=== PATIENT | male | born 1960 | race Caucasian/White ===

== ENCOUNTER 2017-03-08 11:14 | Outpatient (CLI) | payer OTHER | END 2017-03-08 11:15 | disposition home or self-care (01) | LOC: DTY/OP 11:14 | PROVIDERS: ATTEND Surgery | DX: Z01.818 Encounter for other preprocedural examination (principal); E78.5 Hyperlipidemia, unspecified; E11.9 Type 2 diabetes mellitus without complications; I10 Essential (primary) hypertension | CPT/HCPCS: 97802 ==

== ENCOUNTER 2017-06-08 08:51 | Outpatient (CLI) | payer BC ==
--- NOTE | 2017-06-08 09:42 | RAD ---
CHEST TWO VIEWS: History: Pre op. FINDINGS: No comparison. The cardiac silhouette and pulmonary vasculature are unremarkable. Mediastinum is midl ine. There is no confluent airspace consolidation, pneumothorax or pleural fluid apparent. IMPRESSION: No active cardiopulmonary abnormalities are demonstrated. POS: [facility]
[2017-06-08 09:46] LABS: Hemoglobin 15.4 g/dL (14.0-18.0); Mean Corpuscular HGB CONC 33.2 g/dL (32.0-36.0); Mean Corpuscular Hemoglobin 31.7 pg (27.0-31.0); Mean Corpuscular Volume 95.6 fL (80.0-94.0); RBC Distribution Width 12.3 % (11.5-14.5); Red Blood Cell (RBC) Count 4.87 mill/uL (4.70-6.10); White Blood Cell (WBC) Count 6.9 thou/uL (4.8-10.8)
[2017-06-08 09:47] LABS: #Eosinphils 0.1 thou/uL (0.0-0.7); #Lymphocytes 2.2 thou/uL (1.20-3.40); #Monocytes 0.5 thou/uL (0.11-0.59); %Basophils 0.5 % (0.0-1.0); %Eosinophils 1.5 % (0.0-10.0); %Lymphocytes 32.2 % (21.0-51.0); %Monocytes 7.5 % (0.0-10.0); %Neutrophils 58.4 % (42.0-75.0); Mean Platelet Volume 10.4 fL (7.4-10.4); Platelet Count 127 thou/uL (130-400)
[2017-06-08 10:48] LABS: ALT (SGPT) 58 U/L (8-55); AST (SGOT) 51 U/L (5-34); Albumin 3.9 g/dL (3.5-5.0); Alkaline Phosphatase 70 U/L (40-150); Anion Gap 14 mmol/L (10-20); BUN (Urea Nitrogen) 23 mg/dL (8.4-25.7); Bilirubin, Direct 0.5 mg/dL (0.1-0.3); Bilirubin, Total 1.3 mg/dL (0.2-1.2); Calc. Creatinine Clearance 0 mL/min (70-130); Calcium 9.4 mg/dL (7.8-10.44); Carbon Dioxide 20 mmol/L (22-29); Chloride 109 mmol/L (98-107); Estimated GFR-MDRD Greater than 90; Globulin 3.2 g/dL (2.4-3.5); Glucose 100 mg/dL (70-105); Potassium 4.2 mmol/L (3.5-5.1); Protein, Total 7.1 g/dL (6.0-8.3); Sodium 139 mmol/L (136-145)
[2017-06-08 10:49] LABS: Hemoglobin A1c 5.8 % (4.0-6.0)
== END 2017-06-08 08:52 | disposition home or self-care (01) ==
LOC: LABBT 08:51
PROVIDERS: ATTEND Surgery
DX: Z01.818 Encounter for other preprocedural examination (principal); E66.01 Morbid (severe) obesity due to excess calories
CPT/HCPCS: 71046; 80053; 80076; 83036; 85025

== ENCOUNTER 2017-06-13 05:46 | Inpatient (IN) | payer BC ==
[2017-06-08 09:06] VITALS: BMI 43.4
[2017-06-13] MEDS ORDERED: Heparin 5,000 UNITS/ML VIAL ONE (06:08)
[2017-06-13] MEDS ORDERED: Levofloxacin 500 mg/D5W 100 ml Premix Bag ONE (06:08)
[2017-06-13] MEDS ORDERED: Fentanyl 100 MCG/2 ML VIAL ONE ×3 (06:37→09:51)
[2017-06-13] MEDS ORDERED: Midazolam HCl 2 mg/2 ml Vial ONE ×2 (06:37→07:25)
[2017-06-13] MEDS ORDERED: Lidocaine 2% w/Epinephrine 1:200K 20 ML VIAL ONE (06:59)
[2017-06-13] MEDS ORDERED: Bupivacaine 0.25% HCL 30 ML VIAL ONE (06:59)
--- NOTE | 2017-06-13 07:37 | HP ---
CHIEF COMPLAINT: Morbid obesity. HISTORY: The patient is a 56-year-old male, who has been overweight for many years and attempted [facility] [place] programs without success. He is here for sleeve gastrectomy. PAST MEDICAL HISTORY: Significant for gout and hypertension. PAST SURGICAL HISTORY: Tonsillectomy and cardiac stents. MEDICATIONS: Cialis, metformin, Uloric, atenolol, tramadol, cyclobenzaprine, colchicine. ALLERGIES: No known drug allergies. FAMILY HISTORY: Father of heart disease, hypertension, and high cholesterol with aspiration pne umonia. Mother of lung cancer. SOCIAL HISTORY: He works for [employer]. No tobacco, no alcohol. PHYSICAL EXAMINATION: GENERAL: Height 5 feet 11, weight 318, body mass index 44.35. VITAL SIGNS: Blood pressure 145/90 and pulse 63. GENERAL: A well-developed, well-nourished male in no apparent distress. HEENT: No jaundice. LUNGS: Clear. HEART: Regular rate and rhythm. ABDOMEN: Soft, nondistended, nontender, no masses, or hernias. EXTREMITIES: Good pulses. No pedal edema. BACK: Nontender. ASSESSMENT: Morbid obesity with comorbidities. PLAN: Laparoscopic sleeve gastrectomy. CONSENT: I have discussed the planned procedure as well as risk of bleeding, infection, injury to es ophagus, spleen, loops of bowel, need to open. He understands and gives informed consent.
[2017-06-13] MEDS ORDERED: diphenhydrAMINE 50 MG/ML VIAL IVP PRN ×2 (08:55→09:57)
[2017-06-13] MEDS ORDERED: Hydrocodone-Acetamin 15 ML UDCUP PO PRN (08:55)
[2017-06-13] MEDS ORDERED: hydrALAZINE 20 MG/ML VIAL SLOW IVP PRN (08:55)
[2017-06-13] MEDS ORDERED: Promethazine HCl 25 MG/ML VIAL IM PRN ×3 (08:55→09:57)
[2017-06-13] MEDS ORDERED: Dextrose 50% Abboject 50 ML SYRINGE SLOW IVP PRN (08:55)
[2017-06-13] MEDS ORDERED: Ondansetron HCl/PF 4 MG/2 ML Vial IVP PRN ×3 (08:55→09:57)
[2017-06-13] MEDS ORDERED: Dextrose 5% in Water 1,000 ML IV PRN (08:55)
[2017-06-13] MEDS ORDERED: Insulin Regular 300 UNITS/3 ML VIAL SC PRN (08:55)
--- NOTE | 2017-06-13 09:29 | OP ---
DATE OF PROCEDURE: 06/13/2017 PREOPERATIVE DIAGNOSIS: Morbid obesity. SURGEON: Ahsan López M.D. PROCEDURE: Laparoscopic sleeve gastrectomy, esophagogastroscopy. INDICATIONS: This is a 56-year-old male who has been overweight for many years and attempted multipl e weight loss programs without success. FINDINGS: A 38 Jamaican bougie used. PROCEDURE IN DETAIL: After informed consent was obtained, the patient was taken to the operating milady m and given general endotracheal anesthesia. He was placed in the supine position. The abdomen was prepped and draped in the usual fashion. Local anesthesia infiltrated subcutaneously and deep and a 12 mm incision was performed approximately 8 inches below the xiphoid slightly to the left. Veress n eedle inserted. Drop test performed. Pneumoperitoneum was created to a volume of 2 liters of carbon dioxide. Utilizing a bladeless 12 mm trocar and 0 degree laparoscope direct visual entry in the abd ominal cavity was performed. Pneumoperitoneum was then created to a pressure of 15 mmHg and the loretta ent placed in steep reverse Trendelenburg position. Nathansen liver retractor inserted. Left lobe o f liver retracted superiorly. The pylorus identified, a 12 mm port placed on the right beneath it an d two 12s placed left subcostal. The omentum was taken off the greater curvature 5 cm from the pylor us utilizing the LigaSure. Short gastrics divided with the LigaSure and the left crura defined with the LigaSure. A 38-Jamaican bougie inserted directed into the antrum. The linear 60 mm green load sta pler used to divide the antrum to the bougie, gold load along the bougie, and a series of blues throu gh the angle of His. Intraoperative endoscopy was performed. The video endoscope inserted under dir ect vision and advanced into the sleeve. The staple line inspected. There was no bleeding. Staple line then tested by inflating the new stomach with pressurized air under water. There was no air anika k. Stomach decompressed. Scope removed. The remnant stomach removed from the abdomen through the l eft lateral port site. The fascia closed with 0 Vicryl suture and the GraNee needle. Trocars and re tractors were removed. The skin closed with interrupted 4-0 Rapide. Dermabond applied. The patient tolerated the procedure well and transferred to recovery in good condition. Sponge and needle count verified correct x2.
[2017-06-13] MEDS ORDERED: Promethazine HCl 25 MG/ML VIAL ONE (09:48)
[2017-06-13] MEDS ORDERED: Fentanyl 5000 MCG/250 ML CADD IVPB PRN (09:57)
[2017-06-13] MEDS ORDERED: diphenhydrAMINE 50 MG/ML VIAL IM PRN (09:57)
[2017-06-13] MEDS ORDERED: Ketorolac Tromethamine 30 MG/ML VIAL IVP PRN ×2 (09:57)
[2017-06-13] MEDS ORDERED: diphenhydrAMINE 25 MG CAP PO PRN (09:57)
[2017-06-13] MEDS ORDERED: Zolpidem Tartrate 5 MG TAB PO PRN (09:57)
[2017-06-13] MEDS ORDERED: Promethazine HCl 25 MG/ML VIAL SLOW IVP PRN (09:57)
[2017-06-13] MEDS ORDERED: Naloxone HCl 0.4 mg/ml Vial IV PRN (09:57)
[2017-06-13] MEDS ORDERED: Communication Order-Pharmacy FS SCH (10:00)
[2017-06-13] MEDS ORDERED: fentaNYL Citrate/PF 2,000 MCG in Sodium Chloride 0.9% 60 ML IV PRN (10:15)
[2017-06-13] MEDS: Pantoprazole 40 MG VIAL IVP SCH (13:27)
[2017-06-13] MEDS: Ketorolac Tromethamine 30 MG/ML VIAL IVP SCH ×3 (13:27→23:33)
[2017-06-13] MEDS ORDERED: Ondansetron HCl/PF 4 MG/2 ML Vial ONE (14:35)
[2017-06-13] MEDS ORDERED: Propofol 200 MG/20 ML VIAL ONE (14:35)
[2017-06-13] MEDS ORDERED: Dexamethasone 20 MG/5 ML VIAL ONE (14:35)
[2017-06-13] MEDS ORDERED: Ketorolac Tromethamine 30 MG/ML VIAL ONE (14:35)
[2017-06-13] MEDS ORDERED: Lidocaine 1% PF 5 ML VIAL ONE (14:35)
[2017-06-13] MEDS ORDERED: Glycopyrrolate 0.2 MG/ML 5 ML SYRINGE ONE (14:35)
[2017-06-13] MEDS ORDERED: PHENYLEPHRINE-NS 100 MCG/ML 10 ML SYRINGE ONE (14:35)
[2017-06-13] MEDS: 1/2 NS w/KCL 20 mEq 1,000 ML IV SCH ×2 (17:00→18:45)
[2017-06-14] MEDS: 1/2 NS w/KCL 20 mEq 1,000 ML IV SCH (00:33)
[2017-06-14 05:40] LABS: #Basophils 0.1 thou/uL (0.0-0.2); #Lymphocytes 2.2 thou/uL (1.20-3.40); #Neutrophils 7.6 thou/uL (1.40-6.50); %Basophils 0.5 % (0.0-1.0); %Eosinophils 0.2 % (0.0-10.0); %Lymphocytes 19.8 % (21.0-51.0); %Monocytes 9.5 % (0.0-10.0); Hemoglobin 14.3 g/dL (14.0-18.0); Mean Corpuscular HGB CONC 32.8 g/dL (32.0-36.0); Mean Corpuscular Hemoglobin 31.8 pg (27.0-31.0); Mean Corpuscular Volume 97.1 fl (80.0-94.0); Mean Platelet Volume 10.7 fL (7.4-10.4); Platelet Count 128 thou/uL (130-400); RBC Distribution Width 12.2 % (11.5-14.5); Red Blood Cell (RBC) Count 4.49 mill/uL (4.70-6.10); White Blood Cell (WBC) Count 10.9 thou/uL (4.8-10.8)
[2017-06-14] MEDS: Ketorolac Tromethamine 30 MG/ML VIAL IVP SCH ×2 (05:40→11:49)
[2017-06-14 06:21] LABS: Anion Gap 9 mmol/L (10-20); BUN (Urea Nitrogen) 15 mg/dL (8.4-25.7); Calc. Creatinine Clearance 194 mL/min (70-130); Calcium 8.7 mg/dL (7.8-10.44); Carbon Dioxide 24 mmol/L (22-29); Chloride 108 mmol/L (98-107); Estimated GFR-MDRD Greater than 90; Glucose 86 mg/dL (70-105); Potassium 4.2 mmol/L (3.5-5.1); Sodium 137 mmol/L (136-145)
[2017-06-14] MEDS: Pantoprazole 40 MG VIAL IVP SCH (08:26)
--- NOTE | 2017-06-14 08:27 | RAD ---
GASTROGRAFIN SWALLOW: Date: 06/14/17 HISTORY: 56-year-old male status post gastric sleeve procedure. FINDINGS: A 15 mL Gastrografin swallow was performed. Esophageal motility normal. Contrast passed into the rodney moi sleeve without evidence of leak. A small amount of contrast passed through the gastric sleeve and into the duodenum. Gastroesophageal reflux was seen during the examination from the gastric sleeve i nto the mid thoracic esophagus. IMPRESSION: 1. Status post gastric sleeve procedure without evidence of complication. 2. Gastroesophageal reflux disease. POS: [facility]
[2017-06-14] MEDS ORDERED: Enoxaparin Sodium 40 MG/0.4 ML SYRINGE SC SCH (09:00)
--- NOTE | 2017-06-14 12:25 | DIS ---
DISCHARGE DIAGNOSIS: Morbid obesity. PROCEDURES DURING ADMISSION: Laparoscopic sleeve gastrectomy, intraoperative esophagogastroscopy, po stoperative Gastrografin swallow. HOSPITAL COURSE: The patient was admitted, taken to the operating room where he underwent sleeve gas trectomy. Postoperatively, he did well. Gastrografin swallow was fine. He was started on liquids. He is tolerating well. He is discharged home on hydrocodone and Zofran. Follow up with me in 2 we ks.
[2017-06-14 12:58] VITALS: BP 114/74; TEMP 98.3
== END 2017-06-14 13:31 | disposition home or self-care (01) | DRG 621 ==
LOC: SDC 05:46 → SURG B 08:55
PROVIDERS: ADMIT Surgery; ATTEND Surgery
PROC: 0DB64Z3 Excision of Stomach, Percutaneous Endoscopic Approach, Vertical (ICD-10-PCS; principal; 2017-06-13)
PROC: 0DJ68ZZ Inspection of Stomach, Via Natural or Artificial Opening Endoscopic (ICD-10-PCS; 2017-06-13)
DX: E66.01 Morbid (severe) obesity due to excess calories (principal); I10 Essential (primary) hypertension; I25.2 Old myocardial infarction; M10.9 Gout, unspecified; Z68.41 Body mass index [BMI] 40.0-44.9, adult
CPT/HCPCS: 36415; 74241; 80048; 85025; 88307; 88312; 96374; C9113; J0131; J1100; J1644; J1650; J1885; J1956; J2001; J2250; J2405; J2550; J2704; J3010; J7050; S0020

== ENCOUNTER 2017-08-12 09:30 | Day surgery (SDC) | payer BC | END 2017-08-12 12:10 | disposition home or self-care (01) | LOC: SCSER 09:30 → EDSTATUS 09:37 → SCSER/OP 09:38 | PROVIDERS: ATTEND Surgery | DX: R11.2 Nausea with vomiting, unspecified (principal); I10 Essential (primary) hypertension; Z98.84 Bariatric surgery status ==

== ENCOUNTER 2017-09-09 14:43 | Emergency (ER) | payer BC ==
[2017-09-09 15:35] LABS: ALT (SGPT) 40 U/L (8-55); AST (SGOT) 37 U/L (5-34); Albumin 3.8 g/dL (3.5-5.0); Alkaline Phosphatase 88 U/L (40-150); Anion Gap 14 mmol/L (10-20); BUN (Urea Nitrogen) 20 mg/dL (8.4-25.7); Bilirubin, Total 1.3 mg/dL (0.2-1.2); Calc. Creatinine Clearance 0 mL/min (70-130); Calcium 9.1 mg/dL (7.8-10.44); Carbon Dioxide 20 mmol/L (22-29); Chloride 109 mmol/L (98-107); Estimated GFR-MDRD Greater than 90; Globulin 2.6 g/dL (2.4-3.5); Glucose 137 mg/dL (70-105); Potassium 3.6 mmol/L (3.5-5.1); Protein, Total 6.4 g/dL (6.0-8.3); Sodium 139 mmol/L (136-145)
[2017-09-09 15:37] LABS: #Basophils 0.1 thou/uL (0.0-0.2); #Eosinphils 0.1 thou/uL (0.0-0.7); #Lymphocytes 1.5 thou/uL (1.20-3.40); #Monocytes 0.7 thou/uL (0.11-0.59); #Neutrophils 8.4 thou/uL (1.40-6.50); %Basophils 0.5 % (0.0-1.0); %Eosinophils 0.7 % (0.0-10.0); %Lymphocytes 14.3 % (21.0-51.0); %Neutrophils 78.5 % (42.0-75.0); Hemoglobin 14.3 g/dL (14.0-18.0); Large Platelets SLIGHT; MDiff Complete? YES; Mean Corpuscular Volume 91.2 fl (80.0-94.0); Mean Platelet Volume 13.1 fL (7.4-10.4); PLT Morphology Comment Appears Decreased; Platelet Count 98 thou/uL (130-400); RBC Distribution Width 12.4 % (11.5-14.5); RBC Morphology Normal; Red Blood Cell (RBC) Count 4.61 mill/uL (4.70-6.10); White Blood Cell (WBC) Count 10.7 thou/uL (4.8-10.8)
--- NOTE | 2017-09-09 15:39 | CT ---
CT ABDOMEN AND PELVIS WITHOUT CONTRAST: 09/09/17 HISTORY: Right lower quadrant pain. FINDINGS: Absence of oral and IV contrast reduces the sensitivity of the exam particularly for the evaluation o f solid organs and bowel. The lung bases are clear. No calcified gallstones are seen. no free air or free fluid is noted in the abdomen or pelvis. There are calcified granulomas in the spleen. There is a 3.3 cm cortical cyst arising from the anterior aspect of the left kidney. No calculi is seen in the kidneys, ureters or the urinary bladder No hydroureteronephrosis is noted. There is mild enlargement of the prostate gland. No pericolonic inflammatory changes are seen. An abnormally dilated fluid filled appendix is not visu alized. There are vascular calcifications without evidence of aneurysmal dilatation of the abdominal aorta. There are degenerative changes in the spine. IMPRESSION: 1. No CT evidence of urinary tract calculi/obstruction or definite appendicitis. 2. Left renal cyst. 3. Calcified splenic granulomas. POS: [facility]
[2017-09-09 16:00] LABS: Bilirubin Negative (Negative); Blood, Urine Negative (Negative); Clarity Clear (Clear); Glucose, Urine (Dipstick) Negative (Negative); Leukocyte Negative (Negative); Nitrite Negative (Negative); Protein, Urine (Dipstick) Negative (Neg-Trace); Specific Gravity, Urine 1.015 (1.005-1.030); Urobilinogen 0.2 mg/dL (0.2-1.0); pH, Urine 5.5 (5.0-9.0)
== END 2017-09-09 16:28 | disposition home or self-care (01) ==
LOC: SCSER 14:43
DX: R10.9 Unspecified abdominal pain (principal); I25.2 Old myocardial infarction; M10.9 Gout, unspecified; Z79.899 Other long term (current) drug therapy
CPT/HCPCS: 36415; 74176; 80053; 81003; 85025

== ENCOUNTER 2017-09-16 07:01 | Outpatient (CLI) | payer BC ==
--- NOTE | 2017-09-16 07:59 | ULT ---
SONOGRAM RIGHT UPPER QUADRANT: HISTORY: Right upper quadrant pain. FINDINGS: Gallbladder has a normal appearance without evidence of stones. The common duct is 0.5 cm. The live r is echogenic without focal mass or intrahepatic biliary dilatation. No free fluid. IMPRESSION: 1. No evidence of gallstones or biliary obstruction. 2. Hepatosteatosis. POS: [facility]
== END 2017-09-16 07:02 | disposition home or self-care (01) ==
LOC: SCSULT 07:01
PROVIDERS: ATTEND Surgery
DX: R10.9 Unspecified abdominal pain (principal); K76.0 Fatty (change of) liver, not elsewhere classified
CPT/HCPCS: 76705

== ENCOUNTER 2022-12-02 10:31 | Outpatient (CLI) | payer BC | END 2022-12-02 10:32 | disposition home or self-care (01) | LOC: BICULT 10:31 | PROVIDERS: ATTEND Nurse Practitioner Family | DX: R74.8 Abnormal levels of other serum enzymes (principal) | CPT/HCPCS: 76705 ==

== ENCOUNTER 2023-03-01 13:59 | Outpatient (CLI) | payer BC | END 2023-03-01 14:00 | disposition home or self-care (01) | LOC: BICMRI 13:59 | PROVIDERS: ATTEND Family Medicine | DX: M25.562 Pain in left knee (principal); S83.242A Other tear of medial meniscus, current injury, left knee, initial encounter; M23.301 Other meniscus derangements, unspecified lateral meniscus, left knee; M94.262 Chondromalacia, left knee; M25.462 Effusion, left knee ==

== ENCOUNTER 2023-07-20 10:33 | Outpatient (CLI) | payer BC | END 2023-07-20 10:34 | disposition home or self-care (01) | LOC: LABBT 10:33 | PROVIDERS: ATTEND Orthopaedic Surgery | DX: Z01.818 Encounter for other preprocedural examination (principal); M17.12 Unilateral primary osteoarthritis, left knee | CPT/HCPCS: 71046; 93005; 93010 ==

== ENCOUNTER 2024-02-21 14:00 | Outpatient (CLI) | payer BC | END 2024-02-21 14:01 | disposition home or self-care (01) | LOC: BICRAD 14:00 | DX: M25.561 Pain in right knee (principal); M22.2X1 Patellofemoral disorders, right knee; M25.861 Other specified joint disorders, right knee; M25.761 Osteophyte, right knee ==

== ENCOUNTER 2024-05-14 10:08 | Outpatient (CLI) | payer BC | END 2024-05-14 10:09 | disposition home or self-care (01) | LOC: SCSMRI 10:08 | PROVIDERS: ATTEND Orthopaedic Surgery | DX: M23.306 Other meniscus derangements, unspecified meniscus, right knee (principal); M25.461 Effusion, right knee; S83.231A Complex tear of medial meniscus, current injury, right knee, initial encounter; S83.281A Other tear of lateral meniscus, current injury, right knee, initial encounter; M94.261 Chondromalacia, right knee ==

== ENCOUNTER 2024-06-18 10:20 | Outpatient (CLI) | payer BC ==
[2024-06-18 11:14] LABS: #Basophils Less than 0.03 10x3/uL (0.0-0.2); %Basophils 0.2 % (0.0-1.0); %Eosinophils 1.8 % (0.0-10.0); %Lymphocytes 23.2 % (21.0-51.0); %Monocytes 7.9 % (0.0-10.0); %Neutrophils 66.5 % (42.0-75.0); Hematocrit 45.4 % (42.0-52.0); Hemoglobin 15.5 g/dL (14.0-18.0); Mean Corpuscular HGB CONC 34.1 g/dL (32.0-36.0); Mean Corpuscular Hemoglobin 30.8 pg (27.0-31.0); Mean Corpuscular Volume 90.3 fL (78.0-98.0); Mean Platelet Volume 11.3 fL (7.4-10.4); Platelet Count 196 10x3/uL (130-400); RBC Distribution Width 13.4 % (11.5-14.5); Red Blood Cell (RBC) Count 5.03 mill/uL (4.70-6.10)
[2024-06-18 11:31] LABS: Anion Gap 14 mmol/L (10-20); BUN (Urea Nitrogen) 18 mg/dL (8.4-25.7); Calc. Creatinine Clearance 0 mL/min (70-130); Calcium 9.4 mg/dL (7.8-10.44); Carbon Dioxide 20 mmol/L (23-31); Chloride 109 mmol/L (98-107); Estimated GFR 97; Glucose 88 mg/dL (80-115); Potassium 3.9 mmol/L (3.5-5.1); Sodium 139 mmol/L (136-145)
== END 2024-06-18 10:21 | disposition home or self-care (01) ==
LOC: LABBT 10:20
PROVIDERS: ATTEND Orthopaedic Surgery
DX: Z01.818 Encounter for other preprocedural examination (principal); S83.206A Unspecified tear of unspecified meniscus, current injury, right knee, initial encounter
CPT/HCPCS: 71046; 80048; 85025